=== PATIENT | female | born 1990 | race Caucasian/White ===

== ENCOUNTER 2020-11-28 20:13 | Inpatient (IN) | payer MEDICARE, MEDICAID ==
[~2020-11-28] VITALS: Ht 160 cm; Wt 61.9 kg
[~2020-11-28 20:13] MED LIST: LAMO25TA25 PO; OLAN10TA74 PO
[2020-11-28 21:15] LABS: BASOPHILS % (AUTO) 0.5 % (0.0-2.0); EOSINOPHILS % (AUTO) 0.7 % (1.0-6.0); HEMATOCRIT 41.3 % (36-46); HEMOGLOBIN 13.9 g/dL (12.0-16.0); LYMPHOCYTES # (AUTO) 2.4 K/uL (1.0-4.8); MEAN CORPUSCULAR HEMOGLOBIN 30.2 pg (26.0-34.0); MEAN CORPUSCULAR HGB CONC 33.7 G/dL (31.0-37.0); MEAN CORPUSCULAR VOLUME 89 fL (80-100); MONOCYTES # (AUTO) 0.4 K/uL (0.1-1.0); MONOCYTES % (AUTO) 4.7 % (2.0-9.0); NEUTROPHILS # (AUTO) 5.1 K/uL (1.8-7.7); NEUTROPHILS % (AUTO) 64.1 % (40.0-70.0); PLATELET COUNT (AUTO) 323 K/uL (150-450); RED BLOOD CELL COUNT(AUTO) 4.62 MIL/uL (4.00-5.20); RED CELL DISTRIBUTION WIDTH 13.2 % (11.5-14.5)
[2020-11-28 21:22] LABS: AMPHET/METH SCREEN,URINE NEGATIVE (NEGATIVE); BARBITURATE SCREEN, URINE NEGATIVE (NEGATIVE); BENZODIAZEPINES SCREEN,URINE NEGATIVE (NEGATIVE); CANNABINOID SCREEN,URINE NEGATIVE (NEGATIVE); COCAINE SCREEN,URINE NEGATIVE (NEGATIVE); METHADONE SCREEN, URINE NEGATIVE (NEGATIVE); OPIATE SCREEN,URINE NEGATIVE (NEGATIVE); PHENCYCLIDINE SCREEN,URINE NEGATIVE (NEGATIVE)
[2020-11-28 21:25] LABS: ANION GAP 9 mmol/L (8-16); CALCIUM, TOTAL 9.4 mg/dL (8.8-10.5); CARBON DIOXIDE 29 mmol/L (22-29); CHLORIDE 103 mmol/L (98-107); CREATININE 1.08 mg/dL (0.60-1.30); GLOMERULAR FILTR. RATE CALC 59 mL/min (>60); GLUCOSE,RANDOM 121 mg/dL (70-110); POTASSIUM 3.9 mmol/L (3.5-5.1); SODIUM SERUM 141 mmol/L (136-145); UREA NITROGEN, BLOOD 10 mg/dL (7-18)
[2020-11-28 21:31] LABS: ALANINE AMINOTRANSFERASE 30 U/L (12-78); ALKALINE PHOSPHATASE 64 U/L (46-116); ASPARTATE AMINOTRANSFERASE 16 U/L (15-37); BILIRUBIN,TOTAL 0.3 mg/dL (0.1-1.0); TOTAL PROTEIN, SERUM 7.2 g/dL (6.4-8.2)
[2020-11-28] MEDS ORDERED: HALOPERIDOL 5 MG TABLET PO ONE ×2 (21:45→23:00)
[2020-11-28] MEDS ORDERED: ZOLPIDEM TARTRATE 10 MG TABLET PO PRN (22:30)
[2020-11-28] MEDS ORDERED: HALOPERIDOL 5 MG TABLET PO PRN (22:30)
[2020-11-28 22:32] LABS: COVID AG,FIA SOURCE NASOPHARYNGEAL
[2020-11-28] MEDS ORDERED: BENZTROPINE MESYLATE 1 MG TABLET PO ONE (23:00)
[2020-11-28] MEDS ORDERED: TraZODone HCL 50 MG TABLET PO ONE (23:00)
[2020-11-29 02:51] LABS: CHOL/HDL RATIO 2.5 (3.9-5.7)
[2020-11-29] MEDS ORDERED: ACETAMINOPHEN 325 MG TABLET PO PRN (14:00)
[2020-11-29] MEDS ORDERED: LOPERAMIDE HCL 2 MG CAPSULE PO PRN (14:00)
[2020-11-29] MEDS ORDERED: DOCUSATE SODIUM 100 MG CAPSULE PO PRN (14:00)
[2020-11-29] MEDS ORDERED: IBUPROFEN 400 MG TABLET PO PRN (14:00)
[2020-11-29] MEDS ORDERED: GuaiFENesin/D-METHORPHAN [SUGAR-FREE] 200-20MG/10 ML SYRUP UDCUP PO PRN (14:00)
[2020-11-29] MEDS ORDERED: PETROLATUM,WHITE 28 GM JELLY TP PRN (14:00)
[2020-11-29] MEDS ORDERED: MAG HYDROX/AL HYDROX/SIMETH ES 30 ML SUSPENSION UDCUP PO PRN (14:00)
[2020-11-29] MEDS ORDERED: ALBUTEROL SULFATE HFA 90 MCG/PUFF 8 GM INHALER IH PRN (14:00)
[2020-11-29] MEDS ORDERED: NICOTINE 14 MG/24 HOUR PATCH TD PRN (14:00)
[2020-11-29] MEDS ORDERED: MAGNESIUM HYDROXIDE SUSPENSION 30 ML UDCUP PO PRN (14:00)
[2020-11-29] MEDS ORDERED: ONDANSETRON HCL 4 MG TABLET PO PRN (14:00)
[2020-11-29] MEDS ORDERED: CloNIDine HCL 0.1 MG TABLET PO PRN (14:00)
[2020-11-29] MEDS: LORazepam 2 MG TABLET PO PRN (15:26)
[2020-11-29] MEDS ORDERED: HALOPERIDOL 5 MG TABLET PO SCH (21:30)
[2020-11-29] MEDS ORDERED: BENZTROPINE MESYLATE 1 MG TABLET PO SCH (21:30)
[2020-11-29] MEDS ORDERED: TraZODone HCL 150 MG TABLET PO SCH (21:30)
[2020-11-29 21:39] VITALS: BP 103/76
[2020-11-30 00:38] VITALS: BP 102/63
[2020-11-30 08:23] VITALS: BP 104/63
[2020-11-30 16:05] VITALS: BP 109/74
[2020-11-30] MEDS: BENZTROPINE MESYLATE 1 MG TABLET PO SCH (20:12)
[2020-11-30] MEDS ORDERED: TraZODone HCL 150 MG TABLET PO SCH (21:00)
[2020-11-30] MEDS ORDERED: HALOPERIDOL 5 MG TABLET PO SCH (21:00)
[2020-12-01 03:45] VITALS: BP 100/78
[2020-12-01] MEDS: LORazepam 2 MG TABLET PO PRN (03:47)
[2020-12-01 08:08] LABS: FREE T4 (FREE THYROXINE) 0.85 ng/dL (0.76-1.46); THYROID STIMULATING HORMONE 1.78 uIU/mL (0.36-3.74)
[2020-12-01 08:13] VITALS: BP 104/68
[2020-12-01] MEDS: BENZTROPINE MESYLATE 1 MG TABLET PO SCH (08:50)
[2020-12-01 16:09] VITALS: BP 115/68
[2020-12-01] MEDS ORDERED: BENZ1TAB10 PO ×2 (16:39→16:41)
[2020-12-01] MEDS ORDERED: TRAZ150T79 PO ×2 (16:46→16:51)
[2020-12-01] MEDS ORDERED: HALO5TAB23 PO (16:48)
== END 2020-12-01 20:50 | disposition home or self-care (01) | DRG 885 ==
LOC: EMS 20:13 → AHU 22:28 → B2X 11-29 20:22
PROVIDERS: ADMIT Psychiatry & Neurology Psychiatry; ATTEND Psychiatry & Neurology Psychiatry
DX: F25.9 Schizoaffective disorder, unspecified (principal); R45.851 Suicidal ideations; F17.210 Nicotine dependence, cigarettes, uncomplicated; F43.10 Post-traumatic stress disorder, unspecified; Z20.822 Contact with and (suspected) exposure to COVID-19; F15.90 Other stimulant use, unspecified, uncomplicated; R73.9 Hyperglycemia, unspecified; R10.13 Epigastric pain; F41.1 Generalized anxiety disorder; Z79.899 Other long term (current) drug therapy; Z91.14 Patient's other noncompliance with medication regimen
CPT/HCPCS: 80053; 80061; 83036; 84439; 84443; 85025; 99285; G0378; G0480

== ENCOUNTER 2022-05-27 19:58 | Inpatient (IN) | payer MEDICARE, MEDICAID ==
[~2022-05-27] VITALS: Ht 160 cm; Wt 45.6 kg
[~2022-05-27 19:58] MED LIST changes: +BENZ1TAB96 PO; +HALO5TAB23 PO; -LAMO25TA25 PO; -OLAN10TA74 PO; +TRAZ150T79 PO
[2022-05-27 21:26] LABS: EOSINOPHILS % (AUTO) 0.4 % (1.0-6.0); HEMATOCRIT 42.2 % (36-46); HEMOGLOBIN 14.5 g/dL (12.0-16.0); LYMPHOCYTES # (AUTO) 2.5 K/uL (1.0-4.8); LYMPHOCYTES % (AUTO) 30.8 % (22.0-44.0); MEAN CORPUSCULAR HEMOGLOBIN 32.7 pg (26.0-34.0); MEAN CORPUSCULAR HGB CONC 34.4 G/dL (31.0-37.0); MEAN CORPUSCULAR VOLUME 95 fL (80-100); MONOCYTES # (AUTO) 0.8 K/uL (0.1-1.0); MONOCYTES % (AUTO) 9.7 % (2.0-9.0); NEUTROPHILS # (AUTO) 4.7 K/uL (1.8-7.7); NEUTROPHILS % (AUTO) 58.1 % (40.0-70.0); PLATELET COUNT (AUTO) 357 K/uL (150-450); RED BLOOD CELL COUNT(AUTO) 4.44 MIL/uL (4.00-5.20); RED CELL DISTRIBUTION WIDTH 16.4 % (11.5-14.5)
[2022-05-27 21:34] LABS: ANION GAP 9 mmol/L (8-16); CALCIUM, TOTAL 9.4 mg/dL (8.8-10.5); CARBON DIOXIDE 26 mmol/L (22-29); CHLORIDE 99 mmol/L (98-107); CREATININE 1.05 mg/dL (0.60-1.30); GLUCOSE,RANDOM 109 mg/dL (70-110); POTASSIUM 3.5 mmol/L (3.5-5.1); SODIUM SERUM 134 mmol/L (136-145); UREA NITROGEN, BLOOD 8 mg/dL (7-18)
[2022-05-27 21:35] LABS: GLOMERULAR FILTR. RATE CALC 60 mL/min (>60)
[2022-05-27 21:40] LABS: ALANINE AMINOTRANSFERASE 158 U/L (12-78); ALBUMIN 3.9 g/dL (3.4-5.0); ALKALINE PHOSPHATASE 66 U/L (46-116); ASPARTATE AMINOTRANSFERASE 121 U/L (15-37); BILIRUBIN,TOTAL 0.3 mg/dL (0.1-1.0); TOTAL PROTEIN, SERUM 7.8 g/dL (6.4-8.2)
[2022-05-27 22:26] LABS: COVID AG,FIA SOURCE NASAL SWAB
[2022-05-27 22:33] LABS: HCG,QUANTITATIVE < 1 mIU/mL (0-6)
[2022-05-27] MEDS ORDERED: HALOPERIDOL 5 MG TABLET PO PRN (23:45)
[2022-05-27] MEDS ORDERED: LORazepam 2 MG TABLET PO PRN (23:45)
[2022-05-27] MEDS ORDERED: ZOLPIDEM TARTRATE 10 MG TABLET PO PRN (23:45)
[2022-05-28 05:04] VITALS: BP 131/85
[2022-05-28] MEDS ORDERED: INFLUENZA VIRUS VACCINE QVS 2022-23 (6MO+)/PF 60 MCG/0.5 ML SYRINGE IM. ONE (05:30)
[2022-05-28] MEDS ORDERED: LOPERAMIDE HCL 2 MG CAPSULE PO PRN (06:45)
[2022-05-28] MEDS ORDERED: ONDANSETRON HCL 4 MG TABLET PO PRN (06:45)
[2022-05-28] MEDS ORDERED: ACETAMINOPHEN 325 MG TABLET PO PRN (06:45)
[2022-05-28] MEDS ORDERED: PETROLATUM,WHITE 28 GM JELLY TP PRN (06:45)
[2022-05-28] MEDS ORDERED: MAGNESIUM HYDROXIDE SUSPENSION 30 ML UDCUP PO PRN (06:45)
[2022-05-28] MEDS ORDERED: DOCUSATE SODIUM 100 MG CAPSULE PO PRN (06:45)
[2022-05-28] MEDS ORDERED: CloNIDine HCL 0.1 MG TABLET PO PRN (06:45)
[2022-05-28] MEDS ORDERED: ALBUTEROL SULFATE HFA 90 MCG/PUFF 8 GM INHALER IH PRN (06:45)
[2022-05-28] MEDS ORDERED: IBUPROFEN 400 MG TABLET PO PRN (06:45)
[2022-05-28] MEDS ORDERED: GuaiFENesin/D-METHORPHAN [SUGAR-FREE] 200-20MG/10 ML SYRUP UDCUP PO PRN (06:45)
[2022-05-28] MEDS ORDERED: MAG HYDROX/AL HYDROX/SIMETH ES 30 ML SUSPENSION UDCUP PO PRN (06:45)
[2022-05-28] MEDS ORDERED: NICOTINE 14 MG/24 HOUR PATCH TD PRN (06:45)
[2022-05-28 08:15] VITALS: BP 118/82
[2022-05-28] MEDS ORDERED: SERTRALINE HCL 50 MG TABLET PO SCH (12:00)
[2022-05-28] MEDS: GABAPENTIN 100 MG CAPSULE PO SCH ×2 (13:37→17:00)
[2022-05-28] MEDS ORDERED: OLANZapine 10 MG TABLET PO SCH (21:00)
== END 2022-05-28 18:06 | disposition left against medical advice (07) | DRG 885 ==
LOC: EMS 19:58 → B2X 05-28 00:30
PROVIDERS: ADMIT Psychiatry & Neurology Child & Adolescent Psychiatry; ATTEND Psychiatry & Neurology Child & Adolescent Psychiatry
DX: F25.1 Schizoaffective disorder, depressive type (principal); R45.851 Suicidal ideations; Z20.822 Contact with and (suspected) exposure to COVID-19; Z53.29 Procedure and treatment not carried out because of patient's decision for other reasons; F15.90 Other stimulant use, unspecified, uncomplicated; F43.10 Post-traumatic stress disorder, unspecified; F17.210 Nicotine dependence, cigarettes, uncomplicated; Z88.8 Allergy status to other drugs, medicaments and biological substances
CPT/HCPCS: 80053; 84702; 85025; 99285; G0480